=== PATIENT | male | born 1960 | race Caucasian/White ===

== ENCOUNTER 2017-07-25 14:59 | Emergency (ER) | payer OTHER ==
[2017-07-25 15:05] VITALS: PULSE 118
--- NOTE | 2017-07-25 15:11 | EDPHY ---
H & P Stated Complaint: atrial fib last 3 days on coumadin/ Time Seen by Provider: 07/25/17 15:11 - Personal History Current Tetanus/Diphtheria Vaccine: Unsure - Medical/Surgical History Hx Asthma: No Hx Chronic Respiratory Disease: No Hx Diabetes: No Hx Cardiac Disease: Yes Hx Renal Disease: No Hx Cirrhosis: No Hx Alcoholism: No Hx HIV/AIDS: No Hx Splenectomy or Spleen Trauma: No Other PMH: afib/htn/dvt - Social History Smoking Status: Never smoked Constitutional: Initial Vital Signs Temperature (C) 36.7 C 07/25/17 15:02 Heart Rate 118 H 07/25/17 15:02 Respiratory Rate 20 07/25/17 15:02 Blood Pressure 137/103 H 07/25/17 15:02 O2 Sat (%) 95 07/25/17 15:02 O2 Delivery Mode Room Air Allergies/Adverse Reactions: No Known Allergies Allergy (Verified 07/25/17 15:58) Home Medications: Medication Instructions Recorded Allopurinol [Allopurinol 300 MG 300 mg PO DAILY 07/25/17 (RX)] Atorvastatin Calcium [Lipitor 40 40 mg PO HS 07/25/17 mg (*)] Enoxaparin [Lovenox 100 MG (*)] 100 mg SQ 0600 #1 syr 07/25/17 Flecainide Acetate 100 mg PO BID 07/25/17 Herbals/Supplements -Info Only 1 ea PO DAILY 07/25/17 Ibuprofen [Motrin (*)] 200 - 400 mg PO DAILY PRN 07/25/17 Lansoprazole [Prevacid] 15 mg PO DAILY 07/25/17 Verapamil ER [Calan SR/ER 240MG 240 mg PO DAILY8 07/25/17 (*)] Warfarin Sodium [Coumadin 5MG (*)] 10 mg PO SUTUTHFRSA 07/25/17 Warfarin Sodium [Coumadin 7.5MG 15 mg PO MOWE 07/25/17 (*)] Medical Decision Making ED Course/Re-evaluation: CHIEF COMPLAINT: Rapid heart rate HISTORY OF PRESENT ILLNESS: The patient is an anticoagulated 57 y/o male with history of Factor V Leiden deficiency and intermittent atrial fibrillation who presents with a constant, rapid heart rate that he woke up with on Friday, 2 days ago. He states he's had a-fib episodes throughout his life, but this time feels different in that it's "sustained and elevated." He denies associated lightheadedness, dizziness, or syncope, but says he has an "occasional burn like I just ran a mile" in his chest and general fatigue. He had his INR drawn on Friday after symptoms started and reports he was mildly subtherapeutic at 2.04. He takes Flecainide twice daily and can take extra if needed for a-fib episodes, but he did not take additional medication this time. He's discussed the possibility of an ablation with Dr. Johnson in the past. He has had a stress test in the past, but is unsure what the results were. REVIEW OF SYSTEMS: A 10 point review of systems was performed and is negative with the exception of the elements mentioned in the history of present illness. PHYSICAL EXAM: HR, BP, O2 Sat, RR. Temp noted General Appearance: Alert, well hydrated, appropriate, and non-toxic appearing. Head: Atraumatic without scalp tenderness or obvious injury, very flushed face. Eyes: Pupils equal, round, reactive to light and accommodation, EOMI, no trauma , no injection. Nose: Atraumatic, no rhinorrhea, clear. Throat: Mucus membranes moist. Neck: Supple, nontender, no lymphadenopathy. Respiratory: No retractions, no distress, no wheezes, and no accessory muscle use. Lungs are clear to auscultation bilaterally. Cardiovascular: Tachycardic regular rate and rhythm, no murmurs, rubs, or gallops. Good capillary refill all extremities. Gastrointestinal: Abdomen is soft, nontender, non-distended, no masses, no rebound, no guarding, no peritoneal signs. Musculoskeletal: Normal active ROM of all extremities, atraumatic. Neurological: Alert, appropriate, and interactive. The patient has non-focal cranial nerves, motor, sensory, and cerebellar exam. Skin: No rashes, good turgor, no nodules on palpation. Mildly diaphoretic. Past medical history: Hypertension, atrial fibrillation, Factor V Leiden deficiency, DVT - Coumadin Past surgical history: Noncontributory Family history: Noncontributory Social history: Employed. Lives in [place]. PCP: Dr. Sophia Shah, Associate Chief Nurse: Dr. Johnson DIAGNOSTICS/PROCEDURES/CRITICAL CARE TIME: The 12 lead EKG was interpreted by myself. Atrial flutter, 2-1 conduction, rate 118. See hard copy and/or "tracemaster" electronic copy for interpretation. DIFFERENTIAL DIAGNOSIS: The differential diagnosis for the patient's narrow complex tachycardia included but was not limited to various causes of sinus tachycardia such as dehydration and medicines, SVT, atrial flutter, atrial fibrillation, pulmonary causes. MEDICAL DECISION MAKIN57 y/o male on Coumadin with subtherapeutic INR, with history of Factor V Leiden deficiency and prior episodes of atrial fibrillation who presents with 2- day history of rapid heart rate, fatigue, and intermittent chest burning. He is flushed and mildly diaphoretic on exam. EKG shows atrial flutter 2:1 with rate around 120. Recommended admission. 1545: Consulted with Dr. Johnson, patient's level vial inside grinder. He agrees patient needs to be bridged with Lovenox, admitted for LAURIE and cardioversion. 1613: Consulted with Dr. Gil, level vial inside grinder. He will consult on patient during admission. 1618: Spoke with hospitalist service. Dr. Catalan accepts admission. 1710: Reassessed patient. He tells me he does not want to stay in the hospital. I discussed my reasoning for recommending admission, which is to get him to therapeutic anticoagulation levels to reduce stroke risk and to perform LAURIE prior to electrical/medical cardioversion tonight or tomorrow. His CHADSVASc score is 4, which classifies him as moderate-high risk for stroke. INR is still low at 2.26, I would like to see him closer to 3. Discussed risks of leaving the hospital including CVA, CT, DVT, permanent disability, and . The patient is still unwilling to stay in the hospital and would like to manage his symptoms at home. He says, "I've been there and done this before and it's probably due to the holidays and stress." He expresses understanding that he is at an extremely elevated risk for stroke and understands my recommendation is to stay in the hospital for treatment and observation. He again declines. He will be discharged with instructions to take 15mg Coumadin tonight, Lovenox shot tomorrow AM, and then restart his normal Coumadin schedule. Advised him to follow up with Dr. Johnson without fail on Friday. Strict return precautions given. I will update Dr. Johnson on patient's decision to decline admission. Dr. Catalan aware. - Data Points Laboratory Results: Laboratory Results 07/25/17 15:17 07/25/17 15:17 07/25/17 07/25/17 07/25/17 15:50 15:17 15:17 WBC RBC Hgb Hct MCV MCH MCHC RDW Plt Count MPV Neut % (Auto) Lymph % (Auto) [place] % (Auto) Eos % (Auto) Baso % (Auto) Nucleat RBC Rel Count Absolute Neuts (auto) Absolute Lymphs (auto) Absolute Monos (auto) Absolute Eos (auto) Absolute Basos (auto) Absolute Nucleated RBC Immature Gran % Immature Gran # PT 25.0 SEC H SEC (12.0-15.0) INR 2.26 H (0.83-1.16) APTT 36.1 SEC SEC (23.0-38.0) D-Dimer < 0.27 ug/mLFEU ug/mLFEU (0.00-0.50) Sodium 139 mEq/L mEq/L (134-144) Potassium 4.7 mEq/L mEq/L (3.5-5.2) Chloride 105 mEq/L mEq/L (97-110) Carbon Dioxide 22 mEq/l mEq/l (22-31) Anion Gap 12 mEq/L mEq/L (8-16) BUN 17 mg/dL mg/dL (7-23) Creatinine 1.2 mg/dL mg/dL (0.7-1.3) Estimated GFR > 60 Glucose 87 mg/dL mg/dL (70-100) Calcium 9.2 mg/dL mg/dL (8.5-10.4) Magnesium 2.1 mg/dL mg/dL (1.6-2.3) Troponin I < 0.012 ng/mL ng/mL (0.000-0.034) Specimen Hemolysis 127 07/25/17 15:17 WBC 5.15 10^3/uL 10^3/uL (3.80-9.50) RBC 5.46 10^6/uL 10^6/uL (4.40-6.38) Hgb 17.3 g/dL g/dL (13.7-17.5) Hct 47.6 % % (40.0-51.0) MCV 87.2 fL fL (81.5-99.8) MCH 31.7 pg pg (27.9-34.1) MCHC 36.3 g/dL g/dL (32.4-36.7) RDW 13.7 % % (11.5-15.2) Plt Count 145 10^3/uL L 10^3/uL (150-400) MPV 9.4 fL fL (8.7-11.7) Neut % (Auto) 54.7 % % (39.3-74.2) Lymph % (Auto) 28.5 % % (15.0-45.0) [place] % (Auto) 14.6 % H % (4.5-13.0) Eos % (Auto) 1.4 % % (0.6-7.6) Baso % (Auto) 0.6 % % (0.3-1.7) Nucleat RBC Rel Count 0.0 % % (0.0-0.2) Absolute Neuts (auto) 2.82 10^3/uL 10^3/uL (1.70-6.50) Absolute Lymphs (auto) 1.47 10^3/uL 10^3/uL (1.00-3.00) Absolute Monos (auto) 0.75 10^3/uL 10^3/uL (0.30-0.80) Absolute Eos (auto) 0.07 10^3/uL 10^3/uL (0.03-0.40) Absolute Basos (auto) 0.03 10^3/uL 10^3/uL (0.02-0.10) Absolute Nucleated RBC 0.00 10^3/uL 10^3/uL (0-0.01) Immature Gran % 0.2 % % (0.0-1.1) Immature Gran # 0.01 10^3/uL 10^3/uL (0.00-0.10) PT INR APTT D-Dimer Sodium Potassium Chloride Carbon Dioxide Anion Gap BUN Creatinine Estimated GFR Glucose Calcium Magnesium Troponin I Specimen Hemolysis Medications Given: Discontinued Medications Enoxaparin Sodium (Lovenox) 100 mg SC EDNOW ONE Stop: 07/25/17 15:53 Last Admin: 07/25/17 16:30 Dose: 100 mg Departure - Departure Disposition: Home, Routine, Self-Care Clinical Impression: Atrial flutter Qualifiers: Atrial flutter type: unspecified Qualified Code(s): I48.92 - Unspecified atrial flutter Condition: Good Report Scribed for: Naeem Liz Report Scribed by: Nellie Beltran Date of Report: 07/25/17 Time of Report: 15:37
--- NOTE | 2017-07-25 15:17 | CPEKG ---
Heart Rate: 118 RR Interval: 508 P-R Interval: 156 QRSD Interval: 94 QT Interval: 352 QTC Interval: 494 P [place]: 261 QRS [place]: 42 T Wave [place]: -38 EKG Severity - ABNORMAL ECG - EKG Impression: ECTOPIC ATRIAL TACHYCARDIA EKG Impression: NONSPECIFIC REPOL ABNORMALITY, DIFFUSE LEADS EKG Impression: BORDERLINE PROLONGED QT INTERVAL Electronically Signed By: Naeem Liz 25-Jul-2017 21:05:19
[2017-07-25 15:27] LABS: PLATELET COUNT 145 10^3/uL (150-400)
[2017-07-25] MEDS ORDERED: ENOXAPARIN 100 MG/ML SYR SC ONE (15:52)
[2017-07-25 16:20] LABS: INR 2.26 (0.83-1.16)
[2017-07-25 18:28] VITALS: BP 142/105; RESP 20; TEMP 98.2; O2SAT 94
== END 2017-07-25 17:55 | disposition home or self-care (01) ==
LOC: UNDOADMOB 16:26
DX: I48.92 Unspecified atrial flutter (principal); I10 Essential (primary) hypertension; Z79.01 Long term (current) use of anticoagulants
CPT/HCPCS: J1650

== ENCOUNTER 2017-08-13 08:57 | Day surgery (SDC) | payer OTHER ==
[2017-08-13] MEDS ORDERED: fentaNYL 100 MCG/2 ML INJ IVP ONE (08:59)
[2017-08-13] MEDS ORDERED: MIDAZOLAM 2 MG/2 ML VIAL IVP ONE (08:59)
[2017-08-13] MEDS ORDERED: BENZOCAINE UNIT DOSE SPRAY HURRICAINE MM ONE (08:59)
[2017-08-13] MEDS ORDERED: ATROPINE SULFATE 1 MG/10 ML SYR IVP ONE (08:59)
[2017-08-13] MEDS ORDERED: NS 500 ML IV ONE (08:59)
--- NOTE | 2017-08-13 09:20 | CPEKG ---
Heart Rate: 121 RR Interval: 496 P-R Interval: 168 QRSD Interval: 94 QT Interval: 328 QTC Interval: 466 P [place]: 261 QRS [place]: 49 EKG Severity - ABNORMAL ECG - EKG Impression: LIKELY ATRIAL FLUTTER EKG Impression: REPOL ABNRM SUGGESTS ISCHEMIA, DIFFUSE LEADS Electronically Signed By: Christin Arnold 13-Aug-2017 14:22:00
[2017-08-13 09:57] LABS: INR 2.72 (0.83-1.16); PROTIME(PATIENT) 28.8 SEC (12.0-15.0)
--- NOTE | 2017-08-13 10:43 | PDGENHP ---
History & Physical Chief Complaint: Aflutter History of Present Illness: 57 year old male with pmh of Paroxysmal atrial fibrillation, Atrial flutter, hx of factor V Leiden with hx of DVT on chronic anticoagulation wtih coumadin. He presents for LAURIE/DCCV in the setting of persistant atrial Flutter. He does have a history of alcohol use but states he drinks 1-2 beers per day only. He is complian with coumadin. INR is therapuetuic at 2.72. He is on Flecainide 100 mg bid, Verapamil 240 mg daily and was started on Toprol XL 25 mg daily on Jul. Pertinent Past, Social, Family History: PMH: Afib, Atrial flutter, HTN, DAVID on CPAP, Asthma, DVT with Factor V [place], chronic anticoagulation with coumadin. Social Hx: former smoker, hx of excessive Ethoh (now 2 beers per day), Relevant Physical Exam: Awake, Alert, Appropriate. Aflutter at 117 bpm. Cardiorespiratory Assessment: BP is stable. Aflutter at 117 bpm
[2017-08-13] MEDS ORDERED: PROPOFOL 200 MG/20 ML VIAL ONE (11:01)
[2017-08-13] MEDS ORDERED: PROPOFOL 200 MG/20 ML VIAL IV ONE (11:15)
--- NOTE | 2017-08-13 11:35 | CPEKG ---
Heart Rate: 51 RR Interval: 1176 P-R Interval: 160 QRSD Interval: 92 QT Interval: 420 QTC Interval: 387 P [place]: 54 QRS [place]: 83 T Wave [place]: 89 EKG Severity - NORMAL ECG - EKG Impression: SINUS RHYTHM EKG Impression: COMPARED WITH 08/13/2017, NSR NOW PRESENT Electronically Signed By: Christin Arnold 13-Aug-2017 14:21:09
[2017-08-13] MEDS ORDERED: ONDANSETRON 4 MG/2 ML VIAL IVP PRN (12:08)
[2017-08-13] MEDS ORDERED: ACETAMINOPHEN 500 MG TAB PO PRN (12:08)
[2017-08-13] MEDS ORDERED: ALBUTEROL 3 ML DEYVIAL IH PRN (12:08)
[2017-08-13] MEDS ORDERED: NALOXONE HCL 0.4 MG/ML INJ IVP PRN (12:08)
--- NOTE | 2017-08-13 12:08 | ECHO ---
[email or web address] [address] Main: [phone] Fax: Transesophageal Echocardiography Name: SONAM JENKINS MR#: [id number] Study Date: 08/13/2017 Study Time: 10:52 AM Date of : 1960 Age: 57 year(s) Height: ( ) Weight: ( ) BSA: Gender: Male Examination: LAURIE Indication: Pre Cardioversion Image Quality: Contrast: Requested by: Randall Johnson Heart Rate: Rhythm: Atrial fibrillation BP: / Procedure Staff Traffic Maintenance Supervisor: Pineda Rowe Reading Physician: Randall Johnson Requesting Provider: LAURIE Exam Details Measurements: Chambers Valvular Assessment AV/MV Valvular Assessment TV/PV Normal Normal Normal Name Value Range Name Value Range Name Value Range LVEF (BP): 20 % (>=55 %) Additional Measurements: Findings: Left Ventricle: Severely reduced systolic LV function. EF is 20 %. The ejection fraction, measured by Simpsons method, is 20 %. Right Ventricle: Severely reduced RV function. Left Atrium: There is no obvious thrombus noted in the left atrium.. Left Atrial Appendage: No thrombus in left appendage. Mitral Valve: The mitral valve is normal in appearance. Mild mitral valve regurgitation is present. Aortic Valve: The aortic valve is tri-leaflet and functions normally. Tricuspid Valve: Patient: SONAM JENKINS Study Date: 08/13/2017 Page 1 of 2 10:52 AM The tricuspid valve is normal in appearance and function. Pulmonic Valve: The pulmonic valve is normal in appearance and function. Aorta: The aorta is normal. Pericardium: No pericardial effusion. Exam Comments: The rhythm is atrial fibrillation, there is severe bi-venticular hypokinesis. The LV EF is estimated at 20%. Proceeded with successful elective DC cardioversion.. l1n (No Signature Object) Patient: SONAM JENKINS Study Date: 08/13/2017 Page 2 of 2 10:52 AM D:_[id number]
--- NOTE | 2017-08-13 12:08 | PDANEPAE ---
ANE History of Present Illness LAURIE + CV ANE Past Medical History - Pulmonary History Hx Oxygen in Use at Home: Yes Hx Sleep Apnea: Yes - Endocrine History Hx Diabetes: No ANE Review of Systems Review of Systems: ANE Patient History - Allergies Allergies/Adverse Reactions: No Known Allergies Allergy (Verified 07/25/17 15:58) - Home Medications Home Medications: Allopurinol [Allopurinol 300 MG (RX)] 300 mg PO DAILY 07/25/17 [Last Taken 08/13] Atorvastatin Calcium [Lipitor 40 mg (*)] 40 mg PO HS 07/25/17 [Last Taken ] Flecainide Acetate 100 mg PO BID 07/25/17 [Last Taken 08/13/17] Herbals/Supplements -Info Only 1 ea PO DAILY 07/25/17 [Last Taken 08/12/17] Ibuprofen [Motrin (*)] 200 - 400 mg PO DAILY PRN 07/25/17 [Last Taken 08/12/17] Lansoprazole [Prevacid] 15 mg PO DAILY 07/25/17 [Last Taken 08/13/17] Verapamil ER [Calan SR/ER 240MG (*)] 240 mg PO DAILY8 07/25/17 [Last Taken 08/13] Warfarin Sodium [Coumadin 5MG (*)] 10 mg PO SUTUTHFRSA 07/25/17 [Last Taken ] Warfarin Sodium [Coumadin 7.5MG (*)] 15 mg PO MOWE 07/25/17 [Last Taken 08/11/17 ] Losartan-Hctz 100-25 mg Tab 08/13/17 [Last Taken 08/13/17] Synthroid 50 mcg (*) 08/13/17 [Last Taken 08/13/17] - Smoking Hx Smoking Status: Never smoked ANE Labs/Vital Signs - Labs Result Diagrams: 08/13/17 09:32 - Vital Signs Height: 187.96 cm Weight: 106.594 kg ANE Physical Exam - Airway Neck exam: FROM Mallampati Score: Class 2 Mouth exam: normal dental/mouth exam - Pulmonary Pulmonary: clear to auscultation - Cardiovascular Cardiovascular: regular rate and rhythym - ASA Status ASA Status: III ANE Anesthesia Plan Anesthesia Plan: GA with mask
--- NOTE | 2017-08-13 12:08 | POSTANESTH ---
Post Anesthetic Evaluation Cardiovascular Status: Normal, Stable Respiratory Status: Normal, Stable Level of Consciousness/Mental Status: Can Participate in Eval, Alert and Oriented Pain Control: Adequate, Prn Tx Ordered Nausea/Vomiting Control: Adequate, Prn Tx Ordered Complications Possibly Related to Anesthesia: None Noted
--- NOTE | 2017-08-13 14:42 | CPIP ---
[f rep st] INVASIVE CARDIAC PROCEDURE DATE OF PROCEDURE: 08/13/2017 PROCEDURE PERFORMED: Transesophageal echocardiogram-guided cardioversion. INDICATION FOR PROCEDURE: Persistent atrial flutter. SUMMARY: The patient is a pleasant 57-year-old gentleman known to my cardiology practice with a hist ory of paroxysmal atrial fibrillation and atrial flutter, as well as history of sleep apnea and hyper tension, as well as history of alcoholism. He presented to the emergency department earlier this fri in atrial flutter with rapid ventricular response. He was recommended to undergo cardioversion wh ile in the emergency room. He refused and was discharged home. He was seen by his primary care phys ician, Dr. Shah, at the [facility] on August 07, 2017, at which time, he remained in atrial flutter at 117 beats per minute. He was started on Toprol-XL 25 mg once daily in conjunction with his verapamil 240 mg daily and flecainide 100 mg p.o. b.i.d. He has been on chronic Coumadin th era secondary to history of factor V Leiden and DVT. INR today was therapeutic at 2.78. He presen ts today for LAURIE cardioversion in the setting of persistent atrial flutter. His initial rate this mo rning was 117 beats per minute. DESCRIPTION OF PROCEDURE: After informed consent was obtained for LAURIE cardioversion and anesthesia, a time-out was obtained. Propofol was administered after bite block was in place. Once appropriate level of sedation was achieved, LAURIE probe was passed without incident. LAURIE probe was used to take im ages of all cardiac structures with primary focus on the left atrium and left atrial appendage. Ther e was no evidence of left atrial appendage or left atrial thrombus. The LAURIE probe was removed withou t incident. Patient underwent a single shock of synchronized biphasic energy at 150 joules returning him to leticia l sinus rhythm, sinus bradycardia at 54 beats per minute. He woke from the procedure. He had no pos toperative complications. At the time of this dictation, he is feeling well without any further comp laints. I have discussed with the patient, as well as his his history of alcoholism. His echocardiogram did demonstrate severe global biventricular dysfunction with LVEF of approximately 20% to 25% and mo derate to severe right ventricular dysfunction. I explained that I thought this was due to a combina tion of his alcoholism coupled with his tachycardia-mediated cardiomyopathy. I have recommended that he remain abstinent from alcohol completely. PLAN: 1. Patient will be discharged home after an extended period of monitoring to make sure he does not d evelop flash pulmonary edema. 2. Patient and his were given instructions on when to return to the hospital, including onset o f shortness of breath or dyspnea, chest pain, or the development of lower extremity edema or any othe r symptoms that he finds concerning. 3. In the absence of further symptoms, will have him return to the office next week for a nurse visi t for an ECG. Will have him return to the office in 2 weeks for a complete 2D echocardiogram and to follow up with me the following week. 4. He will be discharged home on his current medications. /[id number]/MODL
== END 2017-08-13 13:00 | disposition home or self-care (01) ==
LOC: FCATH 08:57
PROVIDERS: ATTEND Internal Medicine Cardiovascular Disease
PROC: 5A2204Z Restoration of Cardiac Rhythm, Single (ICD-10-PCS; principal; 2017-08-13)
PROC: B245ZZ4 Ultrasonography of Left Heart, Transesophageal (ICD-10-PCS; principal; 2017-08-13)
DX: I48.92 Unspecified atrial flutter (principal); I48.0 Paroxysmal atrial fibrillation; I42.9 Cardiomyopathy, unspecified; G47.33 Obstructive sleep apnea (adult) (pediatric); D68.51 Activated protein C resistance; I10 Essential (primary) hypertension; E78.5 Hyperlipidemia, unspecified; F10.21 Alcohol dependence, in remission; I73.9 Peripheral vascular disease, unspecified; M10.9 Gout, unspecified; J45.909 Unspecified asthma, uncomplicated; E66.9 Obesity, unspecified; Z68.30 Body mass index [BMI] 30.0-30.9, adult; Z79.01 Long term (current) use of anticoagulants; Z87.891 Personal history of nicotine dependence; Z86.718 Personal history of other venous thrombosis and embolism; Z99.89 Dependence on other enabling machines and devices
CPT/HCPCS: J0461; J2704